=== PATIENT | female | born 1980 | race Two or more races ===

== ENCOUNTER 2017-08-04 08:59 | Outpatient (CLI) | payer OTHER, MEDICAID ==
--- NOTE | 2017-08-04 10:09 | Non Stress Test Report ---
Non Stress Test Datetime Report Generated by CPN: 08/04/2017 10:08 INDICATION Indication for Study: Diabetes Mellitus; Ordered by Provider MONITORING Monitor Explained: Monitor Explained; Test Explained; Patient Verbalized Understanding Time on Monitor: 08/04/2017 09:12 Time off Monitor: 08/04/2017 09:53 NST Duration: 41 NST INTERVENTIONS NST Interventions: PO Hydration; Reposition Patient Physician Notified NST: K Cowan CNM BABY A: [id number] BABY A Movement : Present Contraction Frequency : none FHR Baseline : 140 Accelerations : 15X15 Decelerations : None Variability : Moderate 6-25bpm NST Review: Meets Criteria for Reactive NST NST Review and Verified By : Maryann Nicole, RN NST Results: Reactive NST REPORT Report Trigger: Send Report
== END 2017-08-04 10:02 | disposition home or self-care (01) ==
LOC: LC 08:59
PROVIDERS: ATTEND Obstetrics & Gynecology
PROC: 4A1HXCZ Monitoring of Products of Conception, Cardiac Rate, External Approach (ICD-10-PCS; principal; 2017-08-04)
DX: O24.419 Gestational diabetes mellitus in pregnancy, unspecified control (principal); Z3A.38 38 weeks gestation of pregnancy
CPT/HCPCS: 59025; 82962

== ENCOUNTER 2017-08-28 09:38 | Inpatient (IN) | payer OTHER, MEDICAID ==
[2017-08-28] MEDS ORDERED: RINGERS SOLUTION,LACTATED 1,000 ML IV PRN (10:02)
[2017-08-28] MEDS ORDERED: RINGERS SOLUTION,LACTATED 1,000 ML IV ONE (10:02)
[2017-08-28] MEDS ORDERED: OXYTOCIN/NORMAL SALINE 20 UNIT/1,000 ML RTUINJ IV PRN ×2 (10:21→16:21)
[2017-08-28 10:58] LABS: ABSOLUTE EOSINOPHILS # (AUTO) 0.1 10^3/uL (0.0-0.6); ABSOLUTE MONOCYTES (AUTO) 0.6 10^3/uL (0.1-1.4); BASOPHILS % (AUTO) 0.1 % (0-2); EOSINOPHILS % (AUTO) 0.6 % (0-6); HEMATOCRIT 36.5 % (36.0-47.0); HEMOGLOBIN 12.4 g/dL (12.0-15.5); HGB HCT DIFFERENCE 0.7; LYMPHOCYTES % (AUTO) 20.4 % (13-45); MEAN CORPUSCULAR HEMOGLOBIN 27.9 pg (27.0-33.4); MEAN CORPUSCULAR HGB CONC 33.9 g/dL (32.0-36.0); MEAN CORPUSCULAR VOLUME 82 fl (80-97); RED BLOOD COUNT 4.43 10^6/uL (3.72-5.28); RED CELL DISTRIBUTION WIDTH 17.1 % (11.5-14.0); SEGMENTED NEUTROPHILS % (AUTO) 72.9 % (42-78); WHITE BLOOD COUNT 9.6 10^3/uL (4.0-10.5)
[2017-08-28 11:01] LABS: APPEARANCE,URINE CLEAR; BILIRUBIN,URINE NEGATIVE (NEGATIVE); GLUCOSE, URINE NEGATIVE (NEGATIVE); KETONES,URINE NEGATIVE (NEGATIVE); LEUKOCYTE ESTERASE,URINE TRACE (NEGATIVE); NITRITE,URINE NEGATIVE (NEGATIVE); PROTEIN,URINE 30 mg/dL (NEGATIVE); URINE SPECIFIC GRAVITY 1.025; UROBILINOGEN,URINE NEGATIVE mg/dL (<2.0)
[2017-08-28] MEDS ORDERED: MISOPROSTOL 0.2 MG TABLET ONE (11:08)
[2017-08-28] MEDS ORDERED: OXYTOCIN/NORMAL SALINE 40 UNIT/2,000 ML RTUINJ ONE (11:08)
[2017-08-28] MEDS ORDERED: LIDOCAINE 1% INJ-PF (10 MG/ML) 30 ML SDV ONE (11:08)
[2017-08-28 11:27] LABS: ALANINE AMINOTRANSFERASE 56 U/L (9-52); ALBUMIN 3.5 g/dL (3.5-5.0); ALKALINE PHOSPHATASE 279 U/L (38-126); ANION GAP 13 (5-19); ASPARTATE AMINO TRANSFERASE 30 U/L (14-36); BILIRUBIN,DIRECT 0.3 mg/dL (0.0-0.4); BILIRUBIN,TOTAL 0.3 mg/dL (0.2-1.3); BLOOD UREA NITROGEN 15 mg/dL (7-20); CALCIUM 9.8 mg/dL (8.4-10.2); CARBON DIOXIDE 18 mmol/L (22-30); CHLORIDE 108 mmol/L (98-107); GLUCOSE 76 mg/dL (75-110); LDH 541 U/L (313-618); POTASSIUM 4.6 mmol/L (3.6-5.0); SODIUM 138.8 mmol/L (137-145); TOTAL PROTEIN 6.6 g/dL (6.3-8.2); URIC ACID 4.8 mg/dL (2.5-7.0)
[2017-08-28 11:31] LABS: URINE BARBITURATES SCREEN NEGATIVE; URINE METHADONE SCREEN NEGATIVE; URINE OPIATES LOW NEGATIVE; URINE PHENCYCLIDINE SCREEN NEGATIVE
[2017-08-28 11:36] LABS: URINE CREATININE 133.1 mg/dL (16-327); URINE PROTEIN 29.6 mg/dL (<12)
--- NOTE | 2017-08-28 13:57 | L&D Progress Notes ---
PROGRESS NOTES Datetime Report Generated by CPN: 08/28/2017 13:57 PROGRESS NOTE Impression: Normal Progression of Labor Procedures: Artificial ROM Plan: Continue Present Management Informed Consent Obtained: Vaginal Delivery; Induction of Labor; Risks, Benefits and Alternatives Discussed Vital Signs : Reviewed; Within Normal Limits Comment: feeling pressure, not much pain, agreed to AROM. pitocin infusing at 6mu/min. cx 5/50/-2. AROM for large amount clear fluid. continue pitocin IOL. anticipate . VAGINAL EXAM Dilatation: 5 Effacement: 50 Station: -2 vtx Contractions: irregular MEMBRANES Membranes: Ruptured Amniotic Fluid Color: Clear FETUS A FHR - Baseline: 140 Accelerations: 15X15 Decelerations: Variable FHR Category: Category II : 37+5 Estimated Weight (gm): 3300 Presentation: Vertex SIGNATURE SIGNATURE: [id number];[id number] SIGNATURE: [id number] SIGNATURE: [id number] Assignment: Yessenia Mcdaniel MD Signature: with User ID: [email or web address] : with User ID: [email or web address]
--- NOTE | 2017-08-28 15:16 | L&D Progress Notes ---
PROGRESS NOTES Datetime Report Generated by CPN: 08/28/2017 15:15 PROGRESS NOTE Impression: Normal Progression of Labor Plan: Continue Present Management; Induction Informed Consent Obtained: Vaginal Delivery Comment: pt complaining of feels the need to push. cx 7/c/-1. pitocin at 8mu/min. continue pitocin IOL for uncontrolled diabetes and GHTN, anticipate . VAGINAL EXAM Dilatation: 7 Effacement: c Station: -1 Contractions: Q2mins MEMBRANES Membranes: Ruptured Amniotic Fluid Color: Clear FETUS A FHR - Baseline: 140 Monitoring: External US Accelerations: Absent Decelerations: None FHR Category: Category I FETUS C SIGNATURE: [id number];10,[id number] Assignment: Yessenia Mcdaniel MD Signature: with User ID: Jenny : with User ID: Jenny
[2017-08-28] MEDS ORDERED: ZOLPIDEM TARTRATE 5 MG TABLET PO PRN (16:21)
[2017-08-28] MEDS ORDERED: ACETAMINOPHEN 650 MG SUPP.RECT PR PRN (16:21)
[2017-08-28] MEDS ORDERED: PROMETHAZINE HCL 25 MG SUPP.RECT PR PRN (16:21)
[2017-08-28] MEDS ORDERED: NA PHOS,M-B/NA PHOS,DI-BA (ADULT) 133 ML ENEMA PR PRN (16:21)
[2017-08-28] MEDS ORDERED: ACETAMINOPHEN WITH CODEINE #3 TABLET PO PRN ×2 (16:21)
[2017-08-28] MEDS ORDERED: PROMETHAZINE HCL INJ 25 MG/1 ML VIAL IV PRN (16:21)
[2017-08-28] MEDS ORDERED: MEASLES,MUMPS&RUBELLA VACC/PF 0.5 ML VIAL SUBCUT PRN (16:21)
[2017-08-28] MEDS ORDERED: GLYCERIN/WITCH HAZEL LEAF 1 EACH MED..PAD TP PRN (16:21)
[2017-08-28] MEDS ORDERED: PSEUDOEPHEDRINE HCL 30 MG TABLET PO PRN (16:21)
[2017-08-28] MEDS ORDERED: DIBUCAINE 1% OINTMENT 28 GM TP PRN (16:21)
[2017-08-28] MEDS ORDERED: DIPH/PERTUSS(ACELL)/TETANUS VAC/PF 0.5 ML SYR (>=10YO) IM PRN (16:21)
[2017-08-28] MEDS ORDERED: PROMETHAZINE HCL 25 MG TABLET PO PRN (16:21)
[2017-08-28] MEDS ORDERED: MAGNESIUM HYDROXIDE SUSP 30 ML UDCUP PO PRN (16:21)
[2017-08-28] MEDS ORDERED: BENZOCAINE/MENTHOL AEROSOL SPRAY 56 ML TOP PRN (16:21)
--- NOTE | 2017-08-28 18:04 | Admission Physical ---
Datetime Report Generated by CPN: 08/28/2017 18:04 CURRENT ADMISSION Hx Assessment: The History has been Reviewed and is Current Chief Complaint: Sent from OB Office for Evaluation and Treatment - Please Specify Chief Complaint Other: sent from [facility] for high blood sugar this morning-fasting 140 and mild range elevated BP with complaint of blurred vision Indication for Induction: Maternal Diabetes Indication for Induction: Term, Intrauterine Indication for Induction- Other: uncontrolled GDM on insulin Admit Plan: Admit to Unit; Initiate Labor Induction Protocol ALLERGIES Medication Allergies: Yes Medication Allergies: CT contrast dye (rash reaction) Latex: No Latex Allergies OBSTETRICAL HISTORY EDC: 09/13/2017 00:00 : 7 Para: 3 Term: 3 : 0 SAB: 1 IAB: 0 Ectopic: 1 Livin Cesareans: 0 VBACs: 0 Multiple Births: 0 Gestational Diabetes: Yes Rh Sensitization: No Incompetent Cervix: No MERCEDEZ: No Infertility: No ART Treatment: No Uterine Anomaly: No IUGR: No Hx Previous C/S: No Macrosomia: No Hx Loss/Stillborn: No PIH: Yes Hx : No Placenta Previa/Abruption: No Depression/PP Depression: No PTL/PROM: No Post Hemorrhage: Yes Current Procedures: Ultrasound; NST Obstetrical History Comments: g1- 1999 viable baby boy g2- 2006 viable baby boy g3- miscarriage - 2009 viable baby boy 2015 dnc performed with bleeding complications - 2016 current SEE RECORDS Alcohol: No Marijuana : No Cocaine: No Other Illicit Drugs: No Cigarettes: Never Smoker. 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 Surgery: No Heart Disease: No Hosp/Surgery: No Autoimmune Disorder: No Anesthetic Complications: No Kidney Disease: Yes Abnormal Pap Smear: No Neuro/Epilepsy: No Psychiatric Disorders: No Other Medical Diseases: No Hepatitis/Liver Disease: No Significant Family History: No Varicosities/Phlebitis: No Trauma/Violence : No Thyroid Dysfunction: No INFECTIOUS HISTORY Gonorrhea: No Genital Herpes: No Chlamydia: No Tuberculosis: No Syphilis: No Hepatitis: No HIV/AIDS Exposure: No Rash or Viral Illness: No HPV: No PHYSICAL EXAM General: Normal HEENT: Normal Neurologic: Normal Thyroid: Deferred Heart: Normal Lungs: Normal Breast: Deferred Back: Normal Abdomen: Normal Genitourinary Exam: Normal Extremities: Normal DTRs: Normal Pelvic Type: Adequate Physical Exam Comments: pelvis proven to 7#2 Vital Signs: Reviewed VAGINAL EXAM Dilatation: 7 Dilatation: 5 Effacement: c Effacement: 50 Station: -1 Station: -2 vtx Contraction Comments: Q2mins Contraction Comments: irregular MEMBRANES Membranes: Ruptured Membranes: Ruptured Amniotic Fluid Color: Clear Amniotic Fluid Color: Clear FETUS A EGA: 37.5 Monitoring: External US FHR- Baseline: 150 Variability: Moderate 6-25bpm Accelerations: 15X15 Decelerations: None Estimated Weight (gm): 3300 Presentation: Vertex Admit Comment: states she did not take all of her insulin last night because she was running low-took half of normal dose. denies PARHAM, reports blurred vision since last night, denies RUQ pain. DTR's 1+/1+. agrees to IOL, R/B discussed. denies hx asthma/HSV/blood transfusion. PLANS FOR LABOR AND DELIVERY Labor and Delivery: None Pain Management: None Feeding Preference: Breast Benefit of Breast Feed Discussed: Yes Circumcision: N/A INFORMED CONSENT Informed Consent Obtained: Vaginal Delivery Informed Consent Obtained: Vaginal Delivery; Induction of Labor; Risks, Benefits and Alternatives Discussed Assignment: Yessenia Mcdaniel MD Signature: with User ID: [email or web address] : with User ID: [email or web address]
--- NOTE | 2017-08-28 18:26 | Delivery Summary ---
Del Sum A-C Datetime Report Generated by CPN: 08/28/2017 18:25 DELIVERY PERSONNEL DELIVERY PERSONNEL: [id number] Delivery Doctor:: Cayden DELA CRUZ CNM Labor and Delivery Nurse:: Inga Lambert RNfractionation supervisor Nurse:: Latha Courtney RN Family Consumer Scientist/SALVATIONIST: Dawson Rolle, FRAME COVERER Additional Personnel: : LINDSEY Grant MATERNAL INFORMATION Delivery Anesthesia: None Medications After Delivery: Pitocin Bolus-Please Comment; Pitocin Drip 20 Units/1000ml NSS Estimated Blood Loss (ml): 250cc Maternal Complications: Other Provider Comments: after IOL for uncontrolled GDM on insulin, BERNARDO OF VIABLE FEMALE WITH SPONTANEOUS CRY. CORD CLAMPED X2 AT 45 SEC AND CUT BY FOB. PLACENTA EXPRESSED AT 14 MINS PP, INTACT. NO LACERATIONS. MOTHER AND INFANT STABLE IN L_D #4. LABOR SUMMARY EDC: 09/13/2017 00:00 No. Babies in Womb: 1 Attempted: No Labor Anesthesia: None LABOR INFORMATION Reason for Induction: Gestational Hypertension; Maternal Diabetes Onset of Labor: 08/28/2017 13:43 Complete Dilatation: 08/28/2017 15:35 Oxytocin: Induction Group B Beta Strep: NEGATIVE Antibiotics # of Doses: 0 Steroids Given: None Reason Steroids Not Administered: Not Applicable MEMBRANES Membranes Rupture Method: Artificial Rupture of Membranes: 08/28/2017 13:45 Length of Rupture (hr): 2.10 Amniotic Fluid Color: Clear Amniotic Fluid Amount: Small Amniotic Fluid Odor: Normal STAGES OF LABOR Stage 1 hr: 1 Stage 1 min: 52 Stage 2 hr: 0 Stage 2 min: 16 Stage 3 hr: 0 Stage 3 min: 15 Total Time in Labor hr: 2 Total Time in Labor min: 23 VAGINAL DELIVERY Episiotomy: None Laceration #1: None Laceration Extension #1: N/A Laceration Repair: Not Applicable Sponge Count Correct: N/A Sharps Count Correct: Yes BABY A INFORMATION Delivery Date/Time: 08/28/2017 15:51 Method of Delivery: Vaginal Born in Route : No : N/A Forceps: N/A Vacuum Extraction: N/A Shoulder Dystocia : No PRESENTATION/POSITION BABY A Presentation: Cephalic Cephalic Presentation: Vertex Vertex Position: Left Occipital Anterior Breech Presentation: N/A PLACENTA INFORMATION BABY A Placenta Delivery Time : 08/28/2017 16:06 Placenta Method of Delivery: Expressed Placenta Status: Delivered SCORES BABY A Heart Rate 1 min: >100 bpm Resp Effort 1 min: Good Cry Reflex Irritability 1 min: Cough or Sneeze or Pulls Away Muscle Tone 1 min: Active Motion Color 1 min: Body Boon, Extremities Blue Resuscitation Effort 1 min: Tactile Stimulation SCORE 1 MIN: 9 Heart Rate 5 min: >100 bpm Resp Effort 5 min: Good Cry Reflex Irritability 5 min: Cough or Sneeze or Pulls Away Muscle Tone 5 min: Active Motion Color 5 min: Body Boon, Extremities Blue SCORE 5 MIN: 9 INFORMATION BABY A Gestational Age at Delivery: 37.5 Gestational Status: Early Term- 37- 38.6 Weeks Infant Outcome : Liveborn Condition : Stable Infant Sex: Female IDENTIFICATION BABY A Infant Verification Date/Time: 08/28/2017 16:10 ID Band Number: [id number] Mother's Name Verified: Yes Infant RN Verifying : Cynthia Jansen RNC Additional Verifying Personnel: Dianna Lynn RN WEIGHT/LENGTH BABY A Infant Birthweight (gm): 3040 Infant Weight (lb): 6 Weight (oz): 11 Infant Length (in): 19.50 Length (cm): 49.53 CORD INFORMATION BABY A No. Cord Vessels: 3 Nuchal Cord : N/A Cord Blood Taken: Yes-For Eval (Mom's Blood Type - or O+) Infant Suction: None ASSESSMENT BABY A Skin to Skin: Yes Skin to Skin Time (min): 90 BABY B INFORMATION : N/A SIGNATURES Assignment: Yessenia Mcdaniel MD Signature: with User ID: [email or web address] : with User ID: Jenny : I was personally available for consultation and serving as supervising physician for the MLP.
[2017-08-28] MEDS: DOCUSATE SODIUM 100 MG CAPSULE PO SCH (18:27)
[2017-08-28] MEDS: FERROUS SULFATE 325 MG TABLET PO SCH (18:27)
[2017-08-28] MEDS: FAMOTIDINE 20 MG TABLET PO SCH (21:56)
[2017-08-28] MEDS: IBUPROFEN 800 MG TABLET PO SCH (21:56)
[2017-08-29] MEDS: IBUPROFEN 800 MG TABLET PO SCH ×3 (06:09→21:28)
[2017-08-29 07:49] LABS: HEMATOCRIT 34.9 % (36.0-47.0); HEMOGLOBIN 11.6 g/dL (12.0-15.5); HGB HCT DIFFERENCE -0.1; MEAN CORPUSCULAR HEMOGLOBIN 27.5 pg (27.0-33.4); MEAN CORPUSCULAR HGB CONC 33.3 g/dL (32.0-36.0); MEAN CORPUSCULAR VOLUME 83 fl (80-97); RED BLOOD COUNT 4.23 10^6/uL (3.72-5.28); RED CELL DISTRIBUTION WIDTH 17.4 % (11.5-14.0); WHITE BLOOD COUNT 13.2 10^3/uL (4.0-10.5)
[2017-08-29] MEDS: INSULIN REG, HUMAN 100 UNIT/ML 3 ML VIAL (PYX) SUBCUT SCH (09:08)
[2017-08-29] MEDS: INSULIN NPH (ISOPHANE), HUMAN 100 UNIT/ML 3 ML SUBCUT SCH (09:08)
[2017-08-29] MEDS: FERROUS SULFATE 325 MG TABLET PO SCH ×2 (09:09→17:30)
[2017-08-29] MEDS: DOCUSATE SODIUM 100 MG CAPSULE PO SCH ×2 (09:10→17:30)
[2017-08-29] MEDS: FAMOTIDINE 20 MG TABLET PO SCH ×2 (09:11→21:29)
[2017-08-29] MEDS: SENNOSIDES/DOCUSATE 8.6-50 MG 1 EACH TABLET PO SCH (09:15)
[2017-08-29] MEDS ORDERED: PRENATAL VITAMIN W-O CA NO5/FE FUMARATE/FA CAPSULE PO SCH (10:00)
[2017-08-29] MEDS: PRENATAL VITAMIN W DHA CAPSULE PO SCH (10:01)
--- NOTE | 2017-08-29 10:17 | PDOC PROGRESS REPORT ---
Subjective-OB Subjective: Post Delivery Day: 1 38 year old. Denies any needs at this time, voiding without difficulty, lochia is stable, pain well controlled. Physical Exam (OB) Vital Signs: Temp Pulse Resp BP Pulse Ox 97.6 F 92 16 123/72 100 08/29/17 07:58 08/29/17 07:58 08/29/17 07:58 08/29/17 07:58 08/29/17 07:58 Intake & Output 08/28/17 08/29/17 08/30/17 06:59 06:59 06:59 Weight 110.6 kg - PIH/Pre-Eclampsia Clonus: Negative Headache: Absent Epigastric Pain: No Visual Changes: No - Lochia Lochia Amount: Scant < 10 ml Lochia Color: Rubra/Red - Abdomen Description: Soft, Round Fundal Description: Firm Fundal Height: u/u - u/2 Objective-Diagnostic Laboratory: 08/29/17 07:16 08/28/17 10:25 08/28/17 08/28/17 08/28/17 10:25 10:25 10:25 WBC 9.6 RBC 4.43 Hgb 12.4 Hct 36.5 MCV 82 MCH 27.9 MCHC 33.9 RDW 17.1 H Plt Count 264 Seg Neutrophils % 72.9 Lymphocytes % 20.4 Monocytes % 6.0 Eosinophils % 0.6 Basophils % 0.1 Absolute Neutrophils 7.0 Absolute Lymphocytes 2.0 Absolute Monocytes 0.6 Absolute Eosinophils 0.1 Absolute Basophils 0.0 Sodium 138.8 Potassium 4.6 Chloride 108 H Carbon Dioxide 18 L Anion Gap 13 BUN 15 Creatinine 0.60 Est GFR ( Amer) > 60 Est GFR (Non-Af Amer) > 60 Glucose 76 Uric Acid 4.8 Calcium 9.8 Total Bilirubin 0.3 AST 30 ALT 56 H Alkaline Phosphatase 279 H Total Protein 6.6 Albumin 3.5 Urine Color YELLOW Urine Appearance CLEAR Urine pH 6.0 Ur Specific [place] 1.025 Urine Protein 30 H Urine Glucose (UA) NEGATIVE Urine Ketones NEGATIVE Urine Blood NEGATIVE Urine Nitrite NEGATIVE Ur Leukocyte Esterase TRACE H Urine WBC (Auto) 2 Urine RBC (Auto) 4 Blood Type Antibody Screen 08/28/17 08/29/17 10:25 07:16 WBC 13.2 H RBC 4.23 Hgb 11.6 L Hct 34.9 L MCV 83 MCH 27.5 MCHC 33.3 RDW 17.4 H Plt Count 234 Seg Neutrophils % Lymphocytes % Monocytes % Eosinophils % Basophils % Absolute Neutrophils Absolute Lymphocytes Absolute Monocytes Absolute Eosinophils Absolute Basophils Sodium Potassium Chloride Carbon Dioxide Anion Gap BUN Creatinine Est GFR ( Amer) Est GFR (Non-Af Amer) Glucose Uric Acid Calcium Total Bilirubin AST ALT Alkaline Phosphatase Total Protein Albumin Urine Color Urine Appearance Urine pH Ur Specific [place] Urine Protein Urine Glucose (UA) Urine Ketones Urine Blood Urine Nitrite Ur Leukocyte Esterase Urine WBC (Auto) Urine RBC (Auto) Blood Type A NEGATIVE Antibody Screen NEGATIVE Assessment and Plan(PN) - Assessment and Plan (1) Vaginal delivery Is this a current diagnosis for this admission?: Yes Plan: routine pp care (2) Gestational diabetes mellitus (GDM) Qualifiers: Gestational diabetes mellitus control: insulin-controlled Trimester: third trimester Qualified Code(s): O24.414 - Gestational diabetes mellitus in , insulin controlled Is this a current diagnosis for this admission?: Yes Plan: follow up with pcm (3) History of pre-eclampsia Is this a current diagnosis for this admission?: Yes Plan: 1 w in office follow up - Time Spent with Patient Time with patient: Less than 15 minutes Critical Time spent with patient: Less than 15 minutes Smoking Education Provided: Over 3 minutes Medications reviewed and adjusted accordingly: Yes - Disposition Anticipated Discharge: Home Within: within 24 hours
[2017-08-29] MEDS ORDERED: INSULIN NPH (ISOPHANE), HUMAN 100 UNIT/ML 3 ML SUBCUT SCH (16:00)
[2017-08-29] MEDS ORDERED: INSULIN REG, HUMAN 100 UNIT/ML 3 ML VIAL (PYX) SUBCUT SCH (16:00)
[2017-08-30] MEDS: IBUPROFEN 800 MG TABLET PO SCH (05:27)
--- NOTE | 2017-08-30 09:58 | PDOC DISCHARGE SUMMARY ---
Final Diagnosis Discharge Date: 08/30/17 - Final Diagnosis (1) Vaginal delivery Is this a current diagnosis for this admission?: Yes (2) Gestational diabetes mellitus (GDM) Is this a current diagnosis for this admission?: Yes (3) History of pre-eclampsia Is this a current diagnosis for this admission?: Yes Discharge Data - Discharge Medication Home Medications: Vit/Iron Fum/Folic AC [ Tablet] 1 each PO DAILY 08/17/17 Docusate Sodium [Colace 100 mg Capsule] 100 mg PO BID #60 capsule 08/30/17 Ibuprofen [Motrin 800 mg Tablet] 800 mg PO Q8 #60 tablet 08/30/17 Gestational Age: 37.5 Reason(s) for Admission: Induction of Labor, PIH, Gestional Diabetes Procedures: NST Intrapartum Procedure(s): Spontaneous Vaginal Delivery - [place] Data Baby 1 Female at 1 minute: 9 at 5 minutes: 9 Weight: 3040 kg Home with Mother: Yes Complications: No - Diagnosis Test Laboratory: Temp Pulse Resp BP Pulse Ox 98.1 F 79 15 131/78 H 100 08/30/17 07:52 08/30/17 07:52 08/30/17 07:52 08/30/17 07:52 08/30/17 07:52 08/28/17 08/28/17 08/29/17 10:25 10:25 07:16 RBC 4.43 4.23 Hgb 12.4 11.6 L Hct 36.5 34.9 L Urine Opiates Screen NEGATIVE - Discharge information/Instructions Discharge Activity: Activity As Tolerated, Pelvic Rest, No tub bath Discharge Diet: Diabetic Disposition: HOME, SELF-CARE Follow up with: [facility] in: 1, Weeks - bp and bs check in 1 week, pt instructed to continue to check blood sugar, stop insulin need pcm referral pp
[2017-08-30] MEDS: SENNOSIDES/DOCUSATE 8.6-50 MG 1 EACH TABLET PO SCH (10:28)
[2017-08-30] MEDS: FAMOTIDINE 20 MG TABLET PO SCH (10:28)
[2017-08-30] MEDS: PRENATAL VITAMIN W DHA CAPSULE PO SCH (10:29)
[2017-08-30] MEDS: FERROUS SULFATE 325 MG TABLET PO SCH (10:29)
[2017-08-30] MEDS: DOCUSATE SODIUM 100 MG CAPSULE PO SCH (10:29)
[2017-08-30] MEDS: INSULIN REG, HUMAN 100 UNIT/ML 3 ML VIAL (PYX) SUBCUT SCH (10:30)
[2017-08-30] MEDS: INSULIN NPH (ISOPHANE), HUMAN 100 UNIT/ML 3 ML SUBCUT SCH (10:30)
[2017-08-30 11:53] VITALS: BP 129/73
== END 2017-08-30 12:38 | disposition home or self-care (01) | DRG 775 ==
LOC: LC 09:38 → LR 09:46 → 2S 18:02
PROVIDERS: ADMIT Student in an Organized Health Care Education/Training Program; ATTEND Student in an Organized Health Care Education/Training Program
PROC: 10E0XZZ Delivery of Products of Conception, External Approach (ICD-10-PCS; principal; 2017-08-28)
PROC: 4A1HXCZ Monitoring of Products of Conception, Cardiac Rate, External Approach (ICD-10-PCS; 2017-08-28)
PROC: 3E033VJ Introduction of Other Hormone into Peripheral Vein, Percutaneous Approach (ICD-10-PCS; 2017-08-28)
PROC: 10907ZC Drainage of Amniotic Fluid, Therapeutic from Products of Conception, Via Natural or Artificial Opening (ICD-10-PCS; 2017-08-28)
DX: O24.414 Gestational diabetes mellitus in pregnancy, insulin controlled (principal); O13.4 Gestational [pregnancy-induced] hypertension without significant proteinuria, complicating childbirth; T38.3X6A Underdosing of insulin and oral hypoglycemic [antidiabetic] drugs, initial encounter; E11.65 Type 2 diabetes mellitus with hyperglycemia; Z3A.37 37 weeks gestation of pregnancy; Z91.041 Radiographic dye allergy status; Z37.0 Single live birth
CPT/HCPCS: 36415; 80053; 80307; 81001; 82570; 82962; 83036; 83615; 84156; 84550; 85025; 85027; 86850; 86900; 86901; J1815; J2590; J3490